=== PATIENT | male | born 1955 | race Caucasian/White ===

== ENCOUNTER 2024-03-21 13:05 | Emergency (ER) | payer MEDICARE, SELFPAY ==
[2024-03-21 13:20] VITALS: BP 180/104; PULSE 76; RESP 16; TEMP 36.5; O2SAT 94; BMI 28.2
--- NOTE | 2024-03-21 13:20 | ED.GENADULT ---
HPI - General Adult General Chief complaint: Wound/Laceration Stated complaint: Finger Lac L Hand Time Seen by Provider: 03/21/24 13:24 Source: patient, RN notes reviewed and old records reviewed Mode of arrival: ambulatory Limitations: no limitations History of Present Illness HPI narrative: 68 year old right hand dominant male with no significant pmhx presents to the ED today for evaluation of laceration to left middle finger occurring at approximately 1030 this morning. Admits to using garden mihir and accidentally clipped the tip of his left middle finger. Admits he was unable to control the bleeding at home, prompting him to come in for evaluation. Not on AC. No other injury. Unsure of last tetanus. Denies fevers, chills, numbness/tingling/weakness. Related Data Allergies Allergy/AdvReac Type Severity Reaction Status Date / Time No Known Allergies Allergy Verified 03/21/24 13:22 [facility] Past Medical History Attestation statement: The following information was validated with the patient. Source: old records reviewed and nursing notes reviewed Social History Social History Advance Directives: No Advance Directives Information Provided: No Do you have a plan to hurt others: No Plan Physical Exam ED Vital Signs: Vital Signs - 24 hr 03/21/24 13:20 03/21/24 14:34 03/21/24 14:43 Temperature 97.7 F 97.9 F 97.9 F Pulse Rate 76 78 78 Respiratory Rate 16 20 20 Blood Pressure 180/104 H 148/88 H 148/88 H Pulse Oximetry 94 98 98 Oxygen Delivery Method Room Air Room Air Room Air BMI result Body Mass Index 28.2 Hypertensive, vitals otherwise WNL Const General: cooperative, healthy appearing, comfortable and no acute distress Orientation/consciousness: patient oriented x3 Limitations: no limitations HENMT Head: Yes normal to inspection, Yes No palpable skull fracture present, Yes normocephalic and Yes atraumatic Eyes General: appearance normal, both eyes and all related structures Conjunctivae: conjunctivae normal Sclerae: sclerae normal Pupils: Equal, round and reactive pupils present Neck Neck: Yes normal visual inspection Resp Effort & Inspection: normal respiratory effort Auscultation: clear to auscultation bilaterally Cardio Rate: regular rate Rhythm: regular rhythm Skin Other: + 1 cm superficial linear laceration noted to the finger pad of the left 3rd digit. Slightly bleeding. No purulent discharge. No pulsation. No surrounding erythema. Slightly tender to palpation. No involvement of nail bed. No subungual hematoma. No involvement of deeper structures. Full ROM intact to MCP, DIP, PIP of all digits on left hand. Full ROM intact to left wrist. 2+ radial and ulnar pulse. Neuro General: patient oriented x3 Cranial nerves: Yes Equal, round and reactive pupils present Extrem Other: + see above Hand/finger images: 1. 1 cm laceration Course Course Course Narrative: RME performed by Cheryl Reynolds PA-C. Patient is a 68 year old assigned male at presenting to the emergency department with a left index finger injury. Patient states that he cut the tip of his left 3rd digit off with pruning mihir. Detailed physical exam and review of systems are deferred to the weapons designer. Imaging ordered. Patient placed back in the waiting room pending room availability and results. Reevaluation(s) Reevaluation #1: [id number] --- patient with superficial laceration to finger pad. Bleeding controlled with direct pressure and gauze. Able to visualize entire laceration. No involvement of deeper structures. This does not require sutures. Dermabond applied with success. Patient tolerated this well. Laceration dressed with non adherent gauze. Tetanus updated. X-ray of left 3rd digit ordered while in triage. At this time, patient is declining x-ray. He has full ROM of affected digit. There is no concern for retained foreign body. I do not feel as though x-rays are warranted at this time. Patient has remained stable throughout ED visit today. Discussed worrisome signs and symptoms and when to return to the ED. All questions answered at this time. Patient is agreeable with disposition and stable for discharge. Medications Administered Discontinued Medications Generic Name Dose Route Start Last Admin Trade Name Freq PRN Reason Stop Dose Admin Diphtheria/Tetanus/Acell Pertussis 0.5 ml 03/21/24 13:21 03/21/24 13:48 Diphth,Pertus(Acell),Tet Adult 0.5 Ml Syringe IM 03/21/24 13:22 0.5 ml .ONCE ONE Administration Procedures Laceration Laceration 1: Site: hand Side (If applicable): left (3rd digit) Size (cm): 1 Description: linear Depth: simple, single layer Pre-repair: wound explored and irrigated extensively Technique: other (dermabond) Medical Decision Making Medical Decision Making MDM Narrative: 68 year old right hand dominant male with no significant pmhx presents to the ED today for evaluation of laceration to left middle finger occurring at approximately 1030 this morning. Patient hypertensive to 148/88- likely situational, vitals otherwise WNL. He is nontoxic appearing in no acute distress. On exam, there is 1 cm superficial linear laceration noted to the finger pad of the left 3rd digit. Slightly bleeding. No purulent discharge. No pulsation. No surrounding erythema. Slightly tender to palpation. No involvement of nail bed. No subungual hematoma. No involvement of deeper structures. Full ROM intact to MCP, DIP, PIP of all digits on left hand. Full ROM intact to left wrist. 2+ radial and ulnar pulse. Differential diagnosis includes abrasion, laceration. Unlikely fracture, open fracture, cellulitis, ligament/tendon injury, retained FB. Plan for tetanus booster, lac repair, and disposition. Differential Diagnosis Differential Diagnoses: The differential diagnosis associated with the presentation includes as above. Prescription Management I considered prescription management with: Pain Medication Critical Care Time Critical Care Time Critical Care Time: No Discharge Plan Discharge Clinical Impression: Laceration Patient Disposition: Home, Self-Care Instructions: Skin Adhesive Care (ED) Additional Instructions: You were evaluated in the ED today for laceration to your left middle finger. Your tetanus was updated and will stay up to date for 10 years. The laceration was cleaned and repair with skin glue. Keep the area clean and dry. Do not pick at the glue. If the area begins to bleed again, apply direct pressure for at least 15 minutes. If you are unable to control the bleeding, return to the ED. Return with new or worsening symptoms. In the case of an emergency call 911. Interventions: ED Discharge Assessment Last Done: 03/21/24 14:43 Discharge Date/Time: 03/21/24 14:44 Print Language: [place]
[2024-03-21] MEDS: Diphth,Pertus(ACell),Tet Adult 0.5 ML SYRINGE IM (13:48)
--- NOTE | 2024-03-21 13:53 | PC.NURSE ---
tdap given R deltoid, pt tolerated well.
[2024-03-21 14:34] VITALS: BP 148/88; PULSE 78; RESP 20; TEMP 36.6; O2SAT 98
[2024-03-21 14:43] VITALS: BP 148/88; PULSE 78; RESP 20; TEMP 36.6; O2SAT 98
== END 2024-03-21 14:44 | disposition home or self-care (01) ==
PROVIDERS: Emergency Provider Student in an Organized Health Care Education/Training Program; PCP Pediatrics
DX: S61.213A Laceration without foreign body of left middle finger without damage to nail, initial encounter (principal); M79.645 Pain in left finger(s); W27.2XXA Contact with scissors, initial encounter; Y93.H2 Activity, gardening and landscaping; Y92.007 Garden or yard of unspecified non-institutional (private) residence as the place of occurrence of the external cause; Y99.8 Other external cause status; Z23 Encounter for immunization
CPT/HCPCS: 12001; 90471; 90715; 99282; 99284